=== PATIENT | female | born 1960 | race African-American/Black ===

== ENCOUNTER 2020-10-07 16:07 | Emergency (ER) | payer OTHER ==
[~2020-10-07] VITALS: Ht 160 cm; Wt 88.9 kg
[~2020-10-07 16:07] MED LIST: ABILIFY10 MG ORAL; ALBUTEROL SULF8.5 GM INH; AMOXICILLIN500 MG ORAL; CYCLOBENZAPRINE10 MG ORAL; IBUPROFEN600 MG ORAL; NKM; PROMETHAZINE-C118 M1 ORAL; TRAMADOL HCL50 MG ORAL; VICODIN ES 7.51 EACH PO
[2020-10-07 16:19] VITALS: BP 131/60
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
[2020-10-07 16:44] VITALS: BP 131/60
[2020-10-07] MEDS ORDERED: Tylenol #3 tab (300mg/30mg) ORAL ONE (16:45)
--- NOTE | 2020-10-07 16:49 | NUR ---
ED Nurse Note: Patient left AMA, stated that she needs 2 weeks Tylenol #3 suply. Per Kristy.PA we can not provide patient with 2 weeks meds. Patient left ER with steady gait, AAO x4, VSS at this time. Patient took all belongings.
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
== END 2020-10-07 16:44 | disposition left against medical advice (07) ==
LOC: EMR 16:33
DX: G89.29 Other chronic pain (principal); M25.512 Pain in left shoulder; Z53.29 Procedure and treatment not carried out because of patient's decision for other reasons
CPT/HCPCS: 99282